=== PATIENT | male | born 1955 | race Caucasian/White ===

== ENCOUNTER 2024-01-10 11:29 | Emergency (ER) | payer OTHER, MEDICAID ==
[~2024-01-10] VITALS: Ht 182.9 cm; Wt 109.3 kg
[~2024-01-10 11:29] MED LIST: AML5T PO; ASPI81CH43 PO; HYDR-4833 PO; LORA10TA6 PO; NIAC500T71 PO
[2024-01-10 15:09] VITALS: BP 117/87; RESP 16; TEMP 98; O2SAT 97
[2024-01-10 15:47] VITALS: PULSE 82
== END 2024-01-10 17:43 | disposition home or self-care (01) ==
LOC: ER 11:29
DX: M79.621 Pain in right upper arm (principal); I10 Essential (primary) hypertension; E78.5 Hyperlipidemia, unspecified; Z88.0 Allergy status to penicillin
CPT/HCPCS: 93005